=== PATIENT | male | born 1950 | race Caucasian/White ===

== ENCOUNTER 2018-06-28 20:58 | Emergency (ER) | payer MEDICARE, BC ==
[~2018-06-28] VITALS: Ht 182.9 cm; Wt 81.8 kg
[~2018-06-28 20:58] MED LIST: DONE10TA7 PO; MEMA28CA PO
[2018-06-28 21:41] LABS: BASOPHILS % (AUTO) 0.4 % (0-1); EOSINOPHILS # (AUTO) 0.1 X10'3 (0-0.9); EOSINOPHILS % (AUTO) 1.8 % (0-6); HEMATOCRIT 42.9 % (42.0-52.0); HEMOGLOBIN 14.6 g/dl (14.0-17.9); LYMPHOCYTES # (AUTO) 1.3 X10'3 (1.1-4.8); LYMPHOCYTES % (AUTO) 16.8 % (21-51); MEAN CORPUSCULAR HGB CONC 33.9 % (33.0-36.5); MEAN CORPUSCULAR VOLUME 88.3 FL (78-98); MEAN PLATELET VOLUME 7.8 FL (7.4-10.4); MONOCYTES # (AUTO) 0.5 X10'3 (0-0.9); MONOCYTES % (AUTO) 6.1 % (2-12); NEUTROPHILS # (AUTO) 5.9 X10'3 (1.8-7.7); NEUTROPHILS % (AUTO) 74.9 % (42-75); PLATELET COUNT 259 X10'3 (140-440); RED BLOOD COUNT 4.86 X10'6 (4.70-6.10); RED CELL DISTRIBUTION WIDTH 13.2 % (11.5-14.5); WHITE BLOOD COUNT 7.8 X10'3 (4.5-11.0)
[2018-06-28 21:48] LABS: ALANINE AMINOTRANSFERASE 26 U/L (12-78); ALBUMIN 3.2 G/DL (3.4-5.0); ALBUMIN/GLOBULIN RATIO 1.1 (1.1-1.5); ALKALINE PHOSPHATASE 94 IU/L (46-116); ANION GAP 7 (8-16); ASPARTATE AMINO TRANSFERASE 29 U/L (10-37); BILIRUBIN,TOTAL 0.4 MG/DL (0.1-1.0); BLOOD UREA NITROGEN 24 MG/DL (7-18); CALCIUM 8.6 MG/DL (8.5-10.1); CHLORIDE 107 MMOL/L (99-107); CREATININE 0.96 MG/DL (0.60-1.10); GLUCOSE 130 MG/DL (70-104); POTASSIUM 3.2 MMOL/L (3.5-5.1); SODIUM 142 MMOL/L (135-145); TOTAL CARBON DIOXIDE 27.6 MMOL/L (24-32); eGFR 78 ML/MIN
[2018-06-28 21:58] LABS: ETHANOL < 0.010 GM/DL (0.0-0.010)
[2018-06-28] MEDS ORDERED: LORazepam 2 mg/ml vial IM ONE (22:40)
[2018-06-28] MEDS ORDERED: haloperidol lactate 5mg/ml inj IM ONE (22:40)
[2018-06-28] MEDS ORDERED: QUET25TA PO (22:47)
[2018-06-28] MEDS ORDERED: LORA1TAB PO (22:47)
[2018-06-28] MEDS ORDERED: OLAN10TA19 PO (22:47)
[2018-06-28] MEDS ORDERED: CHLO25CA10 PO (22:47)
[2018-06-28] MEDS ORDERED: FLO0.4C PO (22:47)
[2018-06-28] MEDS ORDERED: ZIPR40CA2 PO (22:47)
[2018-06-28] MEDS ORDERED: ACET325T55 PO (22:47)
[2018-06-28] MEDS ORDERED: QUET-1 PO (22:47)
[2018-06-28] MEDS ORDERED: MIRT15TA PO (22:47)
[2018-06-28] MEDS ORDERED: CYCL-1 PO (22:47)
[2018-06-28] MEDS ORDERED: DIPH25CA46 PO (22:47)
[2018-06-28 23:28] LABS: URINE AMPHETAMINE SCREEN NEGATIVE (Neg); URINE BARBITUATE SCREEN NEGATIVE (Neg); URINE BENZODIAZEPINES SCREEN POSITIVE (Neg); URINE CANNABINOID SCREEN NEGATIVE (Neg); URINE COCAINE SCREEN NEGATIVE (Neg); URINE METHADONE SCREEN NEGATIVE (Neg); URINE OPIATE SCREEN NEGATIVE (Neg); URINE PHENCYCLIDINE SCREEN NEGATIVE (Neg)
[2018-06-29] MEDS ORDERED: acetaminophen 325mg tablet PO PRN (03:30)
[2018-06-29] MEDS ORDERED: cyclobenzaprine 10mg tablet PO PRN (03:30)
[2018-06-29] MEDS ORDERED: ziprasidone IM 20mg inj **IM only IM ONE (05:35)
[2018-06-29] MEDS ORDERED: RIFA550T PO (07:55)
[2018-06-29] MEDS ORDERED: MELA3TAB PO (07:55)
[2018-06-29] MEDS ORDERED: LACT10SO PO (07:55)
[2018-06-29] MEDS ORDERED: MAGN70TA PO (07:55)
[2018-06-29] MEDS ORDERED: PROP10TA10 PO (07:55)
[2018-06-29] MEDS ORDERED: ZIN220C PO (07:55)
[2018-06-29] MEDS ORDERED: FURO-149 PO (07:55)
[2018-06-29] MEDS ORDERED: PANT40TA4 PO (07:55)
[2018-06-29] MEDS ORDERED: DOCU1ENE3 PR (07:59)
[2018-06-29] MEDS ORDERED: HYDR-4383 PO (07:59)
[2018-06-29] MEDS ORDERED: HYDR-4353 PO (07:59)
[2018-06-29] MEDS: TYPE IN GENERIC & BRAND NAME OF PATIENT MED STRENGTH & FORM PO SCH (08:00)
[2018-06-29] MEDS: tamsulosin 0.4mg capsule PO SCH (08:11)
[2018-06-29] MEDS: LORazepam 1 MG tablet PO SCH ×2 (08:11→20:16)
[2018-06-29] MEDS: chlordiazePOXIDE 25mg capsule PO SCH ×3 (08:11→20:16)
[2018-06-29] MEDS: olanzapine 10mg tablet PO SCH (08:12)
[2018-06-29] MEDS: ziprasidone 20mg capsule PO SCH (08:12)
[2018-06-29] MEDS ORDERED: MIRT15TA PO (08:52)
[2018-06-29] MEDS ORDERED: OLAN10TA19 PO (08:52)
[2018-06-29] MEDS ORDERED: ZIPR40CA2 PO (08:52)
[2018-06-29] MEDS ORDERED: CHLO25CA10 PO (08:52)
[2018-06-29] MEDS ORDERED: CYCL-1 PO (08:52)
[2018-06-29] MEDS ORDERED: QUET-1 PO (08:52)
[2018-06-29] MEDS ORDERED: DIPH25CA46 PO (08:52)
[2018-06-29] MEDS ORDERED: MEMA28CA PO (08:52)
[2018-06-29] MEDS ORDERED: ACET325T55 PO (08:52)
[2018-06-29] MEDS ORDERED: DONE10TA7 PO (08:52)
[2018-06-29] MEDS ORDERED: LORazepam 1 MG tablet PO ONE ×2 (10:05→11:05)
[2018-06-29] MEDS: QUEtiapine 25mg tablet PO SCH (10:14)
[2018-06-29] MEDS ORDERED: potassium chloride 10mEq CAPSULE.SA PO ONE (20:20)
[2018-06-29] MEDS ORDERED: potassium Cl 20 mEq SR tablet PO ONE (20:30)
[2018-06-29] MEDS ORDERED: mirtazapine 15mg tablet PO SCH (21:00)
[2018-06-29] MEDS ORDERED: quetiapine 100mg tablet PO SCH (21:00)
[2018-06-29] MEDS ORDERED: donepezil 5mg tablet PO SCH (21:00)
[2018-06-29] MEDS ORDERED: diphenhydrAMINE 25mg capsule PO SCH (21:00)
[2018-06-29] MEDS ORDERED: OLANZapine 2.5MG tablet PO ONE (22:25)
[2018-06-30] MEDS ORDERED: haloperidol lactate 5mg/ml inj IM ONE (00:35)
[2018-06-30] MEDS ORDERED: hyDROXYzine 50 mg/ml injection ***IM only IM ONE (00:35)
[2018-06-30] MEDS: TYPE IN GENERIC & BRAND NAME OF PATIENT MED STRENGTH & FORM PO SCH (08:00)
[2018-06-30] MEDS: QUEtiapine 25mg tablet PO SCH (08:48)
[2018-06-30] MEDS: LORazepam 1 MG tablet PO SCH (08:48)
[2018-06-30] MEDS: olanzapine 10mg tablet PO SCH (08:50)
[2018-06-30] MEDS: ziprasidone 20mg capsule PO SCH (08:58)
[2018-06-30] MEDS: chlordiazePOXIDE 25mg capsule PO SCH (09:01)
[2018-06-30] MEDS: tamsulosin 0.4mg capsule PO SCH (09:01)
[2018-06-30] MEDS ORDERED: LORazepam 1 MG tablet PO ONE (11:10)
[2018-06-30 11:18] VITALS: BP 146/89
== END 2018-06-30 12:50 ==
LOC: ER 20:58
DX: F03.91 Unspecified dementia, unspecified severity, with behavioral disturbance (principal); Z98.890 Other specified postprocedural states; Z79.899 Other long term (current) drug therapy
CPT/HCPCS: 36415; 80053; 80305; 80320; 84443; 85025; 96372; 99285; J1630; J2060; J3410; J3486; Q0163; J3490

== ENCOUNTER 2019-03-03 20:06 | Inpatient (IN) | payer MEDICARE, BC ==
[~2019-03-03] VITALS: Ht 185.4 cm; Wt 79.5 kg
[~2019-03-03 20:06] MED LIST changes: +ACET-2119 PO; +CALC500T11 PO; +CARB15DR91 TOP; +CHLO25TA22 PO; -DONE10TA7 PO; +FINA5TAB11 PO; +FLO0.4C PO; +MAGN400O6 PO; -MEMA28CA PO; +MIRT30TA8 PO; +NEOM28.37 TOP; +POLY17PO36 PO; +TRAZ-251 PO; +ZINC57OI3 TOP
[2019-03-03 20:34] LABS: BASOPHILS # (AUTO) 0.1 X10'3 (0-0.2); BASOPHILS % (AUTO) 0.6 % (0-1); EOSINOPHILS % (AUTO) 0.4 % (0-6); HEMATOCRIT 28.2 % (42.0-52.0); HEMOGLOBIN 9.7 g/dl (14.0-17.9); LYMPHOCYTES % (AUTO) 9.4 % (21-51); MEAN CORPUSCULAR HEMOGLOBIN 29.3 PG (27.0-31.0); MEAN CORPUSCULAR HGB CONC 34.3 g/dL (33.0-36.5); MEAN CORPUSCULAR VOLUME 85.2 FL (78-98); MEAN PLATELET VOLUME 6.8 FL (7.4-10.4); MONOCYTES # (AUTO) 0.9 X10'3 (0-0.9); MONOCYTES % (AUTO) 8.9 % (2-12); NEUTROPHILS # (AUTO) 8.6 X10'3 (1.8-7.7); NEUTROPHILS % (AUTO) 80.7 % (42-75); PLATELET COUNT 369 X10'3 (140-440); RED BLOOD COUNT 3.31 X10'6 (4.70-6.10); RED CELL DISTRIBUTION WIDTH 13.8 % (11.5-14.5); WHITE BLOOD COUNT 10.6 X10'3 (4.5-11.0)
[2019-03-03 20:51] LABS: ALANINE AMINOTRANSFERASE 20 U/L (12-78); ALBUMIN 2.6 G/DL (3.4-5.0); ALBUMIN/GLOBULIN RATIO 0.8 (1.1-1.5); ALKALINE PHOSPHATASE 98 IU/L (46-116); ANION GAP 6 (8-16); ASPARTATE AMINO TRANSFERASE 13 U/L (10-37); BILIRUBIN,TOTAL 0.2 MG/DL (0.1-1.0); BLOOD UREA NITROGEN 26 MG/DL (7-18); BUN/CREATININE RATIO 28.9 (5.4-32.0); CALCIUM 8.4 MG/DL (8.5-10.1); CHLORIDE 109 MMOL/L (99-107); ETHANOL < 0.010 GM/DL (0.0-0.010); GLUCOSE 146 MG/DL (70-104); SODIUM 145 MMOL/L (135-145); TOTAL CARBON DIOXIDE 29.7 MMOL/L (24-32); TOTAL PROTEIN 5.8 G/DL (6.4-8.2); eGFR 84 ML/MIN
[2019-03-03 20:56] LABS: POTASSIUM 2.4 MMOL/L (3.5-5.1)
[2019-03-03] MEDS ORDERED: TRAZ-251 PO (20:59)
[2019-03-03] MEDS ORDERED: potassium 10mEq/100ml NS w/LIDOcaine (10mg/bag) IV SCH (21:00)
[2019-03-03] MEDS ORDERED: normal saline 1000ML IV soln IV ONE (21:05)
[2019-03-03 21:07] LABS: PARTIAL THROMBOPLASTIN TIME 25 SECONDS (22-32)
[2019-03-03] MEDS: potassium Cl 10 mEq/100mL bag IV SCH ×2 (21:16→22:21)
[2019-03-03 21:28] LABS: CLARITY,URINE CLOUDY (Clear); COLOR,URINE YELLOW (Yellow); GLUCOSE, URINE NEGATIVE (Neg); KETONES,URINE TRACE mg/dl (Neg); LEUKOCYTE ESTERASE ,URINE SMALL (Neg); OCCULT BLOOD,URINE SMALL (Neg); PH,URINE 5.5 (4.8-8.0); PROTEIN,URINE 30 mg/dl (Neg); UROBILINOGEN,URINE 0.2 E.U/dL (0.2-1.0)
[2019-03-03 21:38] LABS: UA COLLECTION TYPE FOLEY CATH
[2019-03-03 21:39] LABS: NITRITES, URINE NEGATIVE (Neg); URINE AMPHETAMINE SCREEN NEGATIVE (Neg); URINE BARBITUATE SCREEN NEGATIVE (Neg); URINE BENZODIAZEPINES SCREEN NEGATIVE (Neg); URINE CANNABINOID SCREEN NEGATIVE (Neg); URINE COCAINE SCREEN NEGATIVE (Neg); URINE METHADONE SCREEN NEGATIVE (Neg); URINE OPIATE SCREEN NEGATIVE (Neg); URINE PHENCYCLIDINE SCREEN NEGATIVE (Neg)
[2019-03-03 21:40] LABS: BACTERIA,URINE FEW /HPF (Neg); MUCUS STRANDS MODERATE /LPF (Neg); SQUAMOUS EPITHELIAL CELL,UR FEW /LPF (FEW); WBC CLUMPS,URINE FEW /HPF (NEGATIVE); WBC,URINE 30-50 /HPF (0-4)
[2019-03-03] MEDS ORDERED: CefTRIAXone 2gm/D5W 50ml 50 ML IV ONE (21:45)
--- NOTE | 2019-03-03 21:55 | NUR ---
CHECKED WITH MICROMEDEX, POTASSIUM AND ROCEPHIN ARE IV COMPATIBLE.
[2019-03-03] MEDS ORDERED: ZINC OXIDE TOP PRN (22:25)
[2019-03-03] MEDS ORDERED: CALCIUM CARBONATE PO PRN (22:25)
[2019-03-03] MEDS ORDERED: dextrose 5%-1/2 normal saline 1,000 ML IV SCH (22:26)
[2019-03-03] MEDS ORDERED: acetaminophen 325mg tablet PO PRN ×2 (22:30)
[2019-03-03] MEDS ORDERED: ondansetron/PF 4mg/2ml inj IV PRN (22:30)
[2019-03-03] MEDS ORDERED: mag hydrox/Alum hydrox/simeth 30ml oral suspension PO PRN (22:30)
[2019-03-03] MEDS ORDERED: magnesium hydroxide 30ml (MOM) UD suspension PO PRN (22:30)
[2019-03-03] MEDS ORDERED: morphine 2 MG/ML inj. syringe IV PRN ×2 (22:30)
[2019-03-03] MEDS ORDERED: mirtazapine 15mg tablet PO SCH (22:53)
[2019-03-03] MEDS ORDERED: calcium carbonate 500mg chew tablet PO PRN (22:55)
--- NOTE | 2019-03-04 00:15 | NUR ---
Received report from Bonnie PEREZ in ED. Was given time and opportunity to ask questions and have them answered. Will assume patient care once transferred to unit.
[2019-03-04 00:30] VITALS: BP 106/72
[2019-03-04] MEDS ORDERED: magnesium 4gm in 100ml NS 100 ML IV PRN (01:05)
[2019-03-04] MEDS ORDERED: magnesium Cl slow-release 64mg tablet PO PRN (01:05)
[2019-03-04] MEDS ORDERED: potassium Cl 20 mEq SR tablet PO PRN (01:05)
[2019-03-04 01:50] LABS: BASOPHILS % (AUTO) 0.4 % (0-1); EOSINOPHILS % (AUTO) 0.6 % (0-6); HEMATOCRIT 27.2 % (42.0-52.0); HEMOGLOBIN 9.1 g/dl (14.0-17.9); LYMPHOCYTES # (AUTO) 1.4 X10'3 (1.1-4.8); LYMPHOCYTES % (AUTO) 16.3 % (21-51); MEAN CORPUSCULAR HEMOGLOBIN 28.9 PG (27.0-31.0); MEAN CORPUSCULAR HGB CONC 33.6 g/dL (33.0-36.5); MEAN CORPUSCULAR VOLUME 85.9 FL (78-98); MEAN PLATELET VOLUME 6.8 FL (7.4-10.4); MONOCYTES # (AUTO) 0.8 X10'3 (0-0.9); MONOCYTES % (AUTO) 8.9 % (2-12); NEUTROPHILS # (AUTO) 6.4 X10'3 (1.8-7.7); NEUTROPHILS % (AUTO) 73.8 % (42-75); PLATELET COUNT 345 X10'3 (140-440); RED BLOOD COUNT 3.17 X10'6 (4.70-6.10); RED CELL DISTRIBUTION WIDTH 14.1 % (11.5-14.5); WHITE BLOOD COUNT 8.6 X10'3 (4.5-11.0)
[2019-03-04 02:00] LABS: ALBUMIN 2.4 G/DL (3.4-5.0); ANION GAP 5 (8-16); BLOOD UREA NITROGEN 19 MG/DL (7-18); BUN/CREATININE RATIO 27.5 (5.4-32.0); CALCIUM 7.9 MG/DL (8.5-10.1); CHLORIDE 112 MMOL/L (99-107); CREATININE 0.69 MG/DL (0.60-1.10); GLUCOSE 126 MG/DL (70-104); MAGNESIUM 1.9 MG/DL (1.5-2.4); SODIUM 144 MMOL/L (135-145); TOTAL CARBON DIOXIDE 26.7 MMOL/L (24-32); eGFR > 90 ML/MIN
[2019-03-04 02:06] LABS: POTASSIUM 2.6 MMOL/L (3.5-5.1)
[2019-03-04] MEDS: potassium CL 10mEq/100ml bag 100 ML IV PRN ×6 (02:11→12:35)
[2019-03-04 06:39] LABS: ALBUMIN 2.5 G/DL (3.4-5.0); ANION GAP 7 (8-16); BLOOD UREA NITROGEN 15 MG/DL (7-18); BUN/CREATININE RATIO 24.6 (5.4-32.0); CALCIUM 8.1 MG/DL (8.5-10.1); CHLORIDE 111 MMOL/L (99-107); CREATININE 0.61 MG/DL (0.60-1.10); GLUCOSE 90 MG/DL (70-104); SODIUM 146 MMOL/L (135-145); TOTAL CARBON DIOXIDE 28.2 MMOL/L (24-32); eGFR > 90 ML/MIN
--- NOTE | 2019-03-04 06:40 | NUR ---
Problems reprioritized. Patient report given, questions answered & plan of care reviewed with Olya PEREZ.
[2019-03-04 06:41] LABS: POTASSIUM 2.7 MMOL/L (3.5-5.1)
[2019-03-04 07:00] VITALS: BP 127/76
[2019-03-04] MEDS: CefTRIAXone/D5W-Rocephin 1gm 50 ML IV SCH (07:55)
[2019-03-04] MEDS: zinc oxide ointment 30gm tube TP SCH ×2 (08:00→20:00)
[2019-03-04] MEDS: tamsulosin 0.4mg capsule PO SCH (08:00)
[2019-03-04] MEDS: finasteride 5mg tablet PO SCH (08:00)
[2019-03-04] MEDS: normal saline 1000ml 1,000 ML IV SCH ×2 (08:08→17:55)
[2019-03-04] MEDS: heparin, porcine 5000 units/ml vial SQ SCH ×2 (08:08→20:57)
[2019-03-04] MEDS ORDERED: pneumococcal 23-VAL P-sac vacc 25 mcg/0.5ml vial IMVAC ONE (10:50)
[2019-03-04 12:00] VITALS: BP 102/66
[2019-03-04] MEDS ORDERED: LORazepam 2 mg/ml vial IV PRN (17:20)
[2019-03-04] MEDS ORDERED: LORazepam 0.5 MG tablet PO PRN (17:20)
[2019-03-04] MEDS ORDERED: chlorproMAZINE 25mg tablet PO SCH (18:00)
--- NOTE | 2019-03-04 18:05 | NUR ---
Patient in room [facility]. I have received report from Olya PEREZ and had the opportunity to ask questions and assume patient care.
[2019-03-04 20:00] VITALS: BP 118/73
[2019-03-04] MEDS: lactobacillus rhamnosus 10,000 MMU CELLS/CAPSULE PO SCH (20:56)
[2019-03-04] MEDS ORDERED: traZODone 50mg tablet PO SCH ×2 (21:00)
[2019-03-04] MEDS ORDERED: non-formulary drug (Mirtazapine 1 TAB) PO SCH (21:00)
[2019-03-04] MEDS: potassium Cl 20 mEq SR tablet PO PRN (22:24)
[2019-03-05] VITALS: BP 101/63
[2019-03-05] MEDS: potassium Cl 20 mEq SR tablet PO PRN (03:11)
[2019-03-05] MEDS: normal saline 1000ml 1,000 ML IV SCH ×2 (03:55→08:09)
[2019-03-05 05:21] LABS: BASOPHILS % (AUTO) 0.5 % (0-1); EOSINOPHILS # (AUTO) 0.1 X10'3 (0-0.9); EOSINOPHILS % (AUTO) 0.9 % (0-6); HEMATOCRIT 31.7 % (42.0-52.0); HEMOGLOBIN 10.7 g/dl (14.0-17.9); LYMPHOCYTES # (AUTO) 1.3 X10'3 (1.1-4.8); LYMPHOCYTES % (AUTO) 16.6 % (21-51); MEAN CORPUSCULAR HEMOGLOBIN 28.9 PG (27.0-31.0); MEAN CORPUSCULAR HGB CONC 33.7 g/dL (33.0-36.5); MEAN CORPUSCULAR VOLUME 85.9 FL (78-98); MEAN PLATELET VOLUME 6.7 FL (7.4-10.4); MONOCYTES # (AUTO) 0.7 X10'3 (0-0.9); MONOCYTES % (AUTO) 9.6 % (2-12); NEUTROPHILS # (AUTO) 5.6 X10'3 (1.8-7.7); NEUTROPHILS % (AUTO) 72.4 % (42-75); PLATELET COUNT 369 X10'3 (140-440); RED BLOOD COUNT 3.68 X10'6 (4.70-6.10); RED CELL DISTRIBUTION WIDTH 14.1 % (11.5-14.5); WHITE BLOOD COUNT 7.7 X10'3 (4.5-11.0)
[2019-03-05 05:29] LABS: ALBUMIN 2.5 G/DL (3.4-5.0); ANION GAP 6 (8-16); BLOOD UREA NITROGEN 9 MG/DL (7-18); BUN/CREATININE RATIO 14.5 (5.4-32.0); CALCIUM 8.3 MG/DL (8.5-10.1); CHLORIDE 111 MMOL/L (99-107); CREATININE 0.62 MG/DL (0.60-1.10); GLUCOSE 87 MG/DL (70-104); POTASSIUM 3.7 MMOL/L (3.5-5.1); SODIUM 146 MMOL/L (135-145); TOTAL CARBON DIOXIDE 28.7 MMOL/L (24-32); eGFR > 90 ML/MIN
--- NOTE | 2019-03-05 06:39 | NUR ---
Problems reprioritized. Patient report given, questions answered & plan of care reviewed with Sakina PEREZ.
[2019-03-05 07:00] VITALS: BP 119/81
--- NOTE | 2019-03-05 07:07 | NUR ---
Patient in room [facility]. I have received report from Jeremias PEREZ and had the opportunity to ask questions and assume patient care.
[2019-03-05] MEDS ORDERED: pneumococcal 23-VAL P-sac vacc 25 mcg/0.5ml vial IMVAC ONE (08:00)
[2019-03-05] MEDS: zinc oxide ointment 30gm tube TP SCH (08:00)
[2019-03-05] MEDS: lactobacillus rhamnosus 10,000 MMU CELLS/CAPSULE PO SCH (08:09)
[2019-03-05] MEDS: finasteride 5mg tablet PO SCH (08:09)
[2019-03-05] MEDS: tamsulosin 0.4mg capsule PO SCH (08:09)
[2019-03-05] MEDS: CefTRIAXone/D5W-Rocephin 1gm 50 ML IV SCH (08:09)
[2019-03-05] MEDS: heparin, porcine 5000 units/ml vial SQ SCH (08:10)
[2019-03-05] MEDS ORDERED: POTA20TA10 PO (09:12)
--- NOTE | 2019-03-05 09:13 | NUR ---
Spoke to Leslie Strong regarding if patient has had Pna vaccine and they show no record he is a new resident. Will ask patients when she comes .
[2019-03-05] MEDS ORDERED: CIPR-230 PO (10:52)
[2019-03-05 11:00] VITALS: BP 104/68
[2019-03-05] MEDS ORDERED: chlorproMAZINE 25mg tablet PO SCH (11:36)
--- NOTE | 2019-03-05 11:49 | NUR ---
Called Rosy at [facility] at [phone] and gave report on patient that I sent a leg santizo bag with patient. Picture sent of wound to sacrum and time meds are due next sent with patient. Demolition Hammer Operator Carol notified that patient was going back to [facility].
--- NOTE | 2019-03-05 11:50 | NUR ---
Anisha arrived at 1115 not due until 1145. Patient was transferred to wheelchair and santizo bag emptied. Called Report and patient was discharge with no belongings. Addendum: 03/05/19 at 1152 by Sakina Chavez RN Patient pulled IV out cannula intact 2x2 gauze dressing applied
== END 2019-03-05 11:48 | DRG 71 ==
LOC: ER 20:06 → SUR 3N 03-04 00:14
PROVIDERS: ADMIT Internal Medicine; ATTEND Internal Medicine
PROC: 3E0234Z Introduction of Serum, Toxoid and Vaccine into Muscle, Percutaneous Approach (ICD-10-PCS; principal; 2019-03-04)
DX: G93.49 Other encephalopathy (principal); N39.0 Urinary tract infection, site not specified; E44.0 Moderate protein-calorie malnutrition; F03.90 Unspecified dementia, unspecified severity, without behavioral disturbance, psychotic disturbance, mood disturbance, and anxiety; E87.6 Hypokalemia; D64.9 Anemia, unspecified; L89.152 Pressure ulcer of sacral region, stage 2; Z66 Do not resuscitate; N40.0 Benign prostatic hyperplasia without lower urinary tract symptoms; Z79.899 Other long term (current) drug therapy; Z23 Encounter for immunization; Z79.01 Long term (current) use of anticoagulants
CPT/HCPCS: 36415; 70450; 71045; 80048; 80053; 80305; 80320; 81001; 82140; 83605; 83735; 84132; 84145; 85025; 85610; 85730; 87040; 87077; 87081; 87088; 87186; 90732; 93005; 96365; 96366; 96367; 96368; 99285; G0378; J0696; J1644; J2060; J3480; J7030; Q0161

== ENCOUNTER 2019-05-20 15:55 | Emergency (ER) | payer MEDICARE, BC ==
[~2019-05-20] VITALS: Ht 190.5 cm; Wt 84.8 kg
[~2019-05-20 15:55] MED LIST changes: +POTA20TA10 PO
[2019-05-20 16:02] VITALS: BP 140/86
[2019-05-20 16:46] LABS: BASOPHILS % (AUTO) 0.3 % (0-1); EOSINOPHILS % (AUTO) 0.4 % (0-6); HEMATOCRIT 38.6 % (42.0-52.0); HEMOGLOBIN 12.8 g/dl (14.0-17.9); LYMPHOCYTES % (AUTO) 10.4 % (21-51); MEAN CORPUSCULAR HEMOGLOBIN 28.2 PG (27.0-31.0); MEAN CORPUSCULAR HGB CONC 33.1 g/dL (33.0-36.5); MEAN CORPUSCULAR VOLUME 85.3 FL (78-98); MEAN PLATELET VOLUME 7.4 FL (7.4-10.4); MONOCYTES # (AUTO) 0.6 X10'3 (0-0.9); MONOCYTES % (AUTO) 6.2 % (2-12); NEUTROPHILS # (AUTO) 8.3 X10'3 (1.8-7.7); NEUTROPHILS % (AUTO) 82.7 % (42-75); PLATELET COUNT 249 X10'3 (140-440); RED BLOOD COUNT 4.53 X10'6 (4.70-6.10); RED CELL DISTRIBUTION WIDTH 14.8 % (11.5-14.5)
[2019-05-20 16:52] LABS: PARTIAL THROMBOPLASTIN TIME 30 SECONDS (22-32)
[2019-05-20 16:58] LABS: ALANINE AMINOTRANSFERASE 19 U/L (12-78); ALBUMIN 3.4 G/DL (3.4-5.0); ALKALINE PHOSPHATASE 104 IU/L (46-116); ANION GAP 4 (8-16); ASPARTATE AMINO TRANSFERASE 8 U/L (10-37); BILIRUBIN,TOTAL 0.2 MG/DL (0.1-1.0); BLOOD UREA NITROGEN 26 MG/DL (7-18); BUN/CREATININE RATIO 32.1 (5.4-32.0); CALCIUM 9.3 MG/DL (8.5-10.1); CHLORIDE 106 MMOL/L (99-107); CREATININE 0.81 MG/DL (0.60-1.10); GLUCOSE 96 MG/DL (70-104); SODIUM 141 MMOL/L (135-145); TOTAL CARBON DIOXIDE 31.4 MMOL/L (24-32); TOTAL PROTEIN 6.8 G/DL (6.4-8.2); eGFR > 90 ML/MIN
[2019-05-20 17:00] LABS: LACTIC SEPSIS 0.9 MMOL/L (0.4-2.0)
[2019-05-20 17:03] LABS: TROPONIN I < 0.04 NG/ML (0.0-0.05)
[2019-05-20 17:04] LABS: ETHANOL < 0.010 GM/DL (0.0-0.010)
[2019-05-20 17:10] LABS: CLARITY,URINE CLOUDY (Clear); COLOR,URINE YELLOW (Yellow); GLUCOSE, URINE NEGATIVE (Neg); KETONES,URINE NEGATIVE (Neg); LEUKOCYTE ESTERASE ,URINE NEGATIVE (Neg); NITRITES, URINE NEGATIVE (Neg); OCCULT BLOOD,URINE LARGE (Neg); PROTEIN,URINE 100 mg/dl (Neg); UROBILINOGEN,URINE 0.2 E.U/dL (0.2-1.0)
[2019-05-20 17:12] LABS: UA COLLECTION TYPE FOLEY CATH
[2019-05-20 17:15] LABS: MUCUS STRANDS FEW /LPF (Neg); SQUAMOUS EPITHELIAL CELL,UR MODERATE /LPF (FEW)
[2019-05-20 17:16] LABS: BACTERIA,URINE FEW /HPF (Neg); RBC,URINE TNTC /HPF (0-2); WBC,URINE 20-30 /HPF (0-4)
--- NOTE | 2019-05-20 17:16 | NUR ---
TESTED GATE AMBLULATED AROUND ER WITH STEADY GATE
[2019-05-20 17:17] LABS: CAL OXALATE CRYSTALS 1+ /HPF (NEGATIVE)
[2019-05-20 17:23] LABS: URINE AMPHETAMINE SCREEN NEGATIVE (Neg); URINE BARBITUATE SCREEN NEGATIVE (Neg); URINE BENZODIAZEPINES SCREEN NEGATIVE (Neg); URINE CANNABINOID SCREEN NEGATIVE (Neg); URINE COCAINE SCREEN NEGATIVE (Neg); URINE METHADONE SCREEN NEGATIVE (Neg); URINE OPIATE SCREEN POSITIVE (Neg); URINE PHENCYCLIDINE SCREEN NEGATIVE (Neg)
--- NOTE | 2019-05-20 17:24 | NUR ---
called [facility] [phone] [facility] staff states macrobid started 10/15 100mg bid, and levaquin started 10/16 250 mg daily, dr bradshaw informed.
[2019-05-20] MEDS ORDERED: CEPH500C5 PO (17:30)
--- NOTE | 2019-05-20 17:44 | NUR ---
[facility] WAS CALLED FOR PT. WILL RETURN TO [facility].
[2019-05-20 17:53] LABS: AMMONIA < 10 UMOL/L (11-32)
--- NOTE | 2019-05-20 18:01 | NUR ---
ATTEMPTED TO CALL REPORT TO [facility] NO AWNSER WILL TRY AGAIN
--- NOTE | 2019-05-20 18:06 | NUR ---
2ND ATTEMPT TO [facility] NO AWNSER
== END 2019-05-20 18:20 | disposition home or self-care (01) ==
LOC: ER 15:56
DX: T83.511A Infection and inflammatory reaction due to indwelling urethral catheter, initial encounter (principal); G30.9 Alzheimer's disease, unspecified; F02.80 Dementia in other diseases classified elsewhere, unspecified severity, without behavioral disturbance, psychotic disturbance, mood disturbance, and anxiety; Z98.890 Other specified postprocedural states; Z79.2 Long term (current) use of antibiotics; Z79.899 Other long term (current) drug therapy; Y69 Unspecified misadventure during surgical and medical care; Y92.89 Other specified places as the place of occurrence of the external cause
CPT/HCPCS: 36415; 70450; 71045; 80053; 80305; 80320; 81001; 82140; 83605; 84484; 85025; 85610; 85730; 87040; 87077; 87088; 87186; 93005; 99284

== ENCOUNTER 2019-05-21 15:06 | Emergency (ER) | payer MEDICARE, BC ==
[~2019-05-21] VITALS: Ht 172.7 cm; Wt 85.8 kg
[~2019-05-21 15:06] MED LIST changes: +CEPH500C5 PO
[2019-05-21 15:11] VITALS: BP 130/79
[2019-05-21 15:31] LABS: BASOPHILS # (AUTO) 0.1 X10'3 (0-0.2); BASOPHILS % (AUTO) 0.5 % (0-1); EOSINOPHILS % (AUTO) 0.4 % (0-6); HEMATOCRIT 38.2 % (42.0-52.0); HEMOGLOBIN 12.9 g/dl (14.0-17.9); LYMPHOCYTES # (AUTO) 1.1 X10'3 (1.1-4.8); MEAN CORPUSCULAR HEMOGLOBIN 28.4 PG (27.0-31.0); MEAN CORPUSCULAR HGB CONC 33.7 g/dL (33.0-36.5); MEAN CORPUSCULAR VOLUME 84.3 FL (78-98); MEAN PLATELET VOLUME 7.3 FL (7.4-10.4); MONOCYTES # (AUTO) 0.7 X10'3 (0-0.9); MONOCYTES % (AUTO) 6.5 % (2-12); NEUTROPHILS % (AUTO) 82.6 % (42-75); PLATELET COUNT 251 X10'3 (140-440); RED BLOOD COUNT 4.54 X10'6 (4.70-6.10); RED CELL DISTRIBUTION WIDTH 15.2 % (11.5-14.5); WHITE BLOOD COUNT 10.9 X10'3 (4.5-11.0)
[2019-05-21 15:46] LABS: ALANINE AMINOTRANSFERASE 19 U/L (12-78); ALBUMIN 3.4 G/DL (3.4-5.0); ALBUMIN/GLOBULIN RATIO 1.1 (1.1-1.5); ALKALINE PHOSPHATASE 101 IU/L (46-116); ANION GAP 9 (8-16); ASPARTATE AMINO TRANSFERASE 12 U/L (10-37); BILIRUBIN,TOTAL 0.3 MG/DL (0.1-1.0); BLOOD UREA NITROGEN 24 MG/DL (7-18); BUN/CREATININE RATIO 26.1 (5.4-32.0); CALCIUM 8.4 MG/DL (8.5-10.1); CHLORIDE 108 MMOL/L (99-107); CREATININE 0.92 MG/DL (0.60-1.10); GLUCOSE 95 MG/DL (70-104); POTASSIUM 3.3 MMOL/L (3.5-5.1); SODIUM 145 MMOL/L (135-145); TOTAL CARBON DIOXIDE 27.8 MMOL/L (24-32); TOTAL PROTEIN 6.6 G/DL (6.4-8.2); eGFR 82 ML/MIN
== END 2019-05-21 17:05 | disposition home or self-care (01) ==
LOC: ER 15:07
DX: S00.31XA Abrasion of nose, initial encounter (principal); F03.90 Unspecified dementia, unspecified severity, without behavioral disturbance, psychotic disturbance, mood disturbance, and anxiety; Z98.890 Other specified postprocedural states; Z79.2 Long term (current) use of antibiotics; Z79.899 Other long term (current) drug therapy; W18.39XA Other fall on same level, initial encounter; Y93.89 Activity, other specified; Y92.89 Other specified places as the place of occurrence of the external cause; Y99.8 Other external cause status
CPT/HCPCS: 36415; 70450; 80053; 82948; 85025; 99284

== ENCOUNTER 2019-05-28 04:10 | Emergency (ER) | payer MEDICARE, BC ==
[~2019-05-28] VITALS: Ht 175.3 cm; Wt 75.0 kg
[2019-05-28] MEDS ORDERED: LIDOcaine 2% 10ml TOPICAL JELLY (Urojet) MM ONE ×2 (04:20→04:25)
[2019-05-28 05:09] VITALS: BP 125/86
== END 2019-05-28 05:10 ==
LOC: ER 04:11
DX: T83.098A Other mechanical complication of other urinary catheter, initial encounter (principal); F03.90 Unspecified dementia, unspecified severity, without behavioral disturbance, psychotic disturbance, mood disturbance, and anxiety; Z98.890 Other specified postprocedural states; Z79.2 Long term (current) use of antibiotics; Z79.899 Other long term (current) drug therapy; Y84.6 Urinary catheterization as the cause of abnormal reaction of the patient, or of later complication, without mention of misadventure at the time of the procedure; Y92.89 Other specified places as the place of occurrence of the external cause
CPT/HCPCS: 51702; 99284

== ENCOUNTER 2019-07-01 06:44 | Emergency (ER) | payer MEDICARE, BC ==
[~2019-07-01] VITALS: Ht 185.4 cm; Wt 88.6 kg
[~2019-07-01 06:44] MED LIST changes: -CEPH500C5 PO
[2019-07-01 06:48] VITALS: BP 122/87
[2019-07-01] MEDS ORDERED: LIDOcaine 2% 10ml TOPICAL JELLY (Urojet) MM ONE (07:10)
--- NOTE | 2019-07-01 07:27 | NUR ---
Called [facility] regarding transport, they stated they do not have transport on the weekend and that the family needed to be called. I called [facility] who stated that she would get ready and come get patient to transport back to [facility].
== END 2019-07-01 08:17 ==
LOC: ER 06:44
DX: T83.098A Other mechanical complication of other urinary catheter, initial encounter (principal); F03.90 Unspecified dementia, unspecified severity, without behavioral disturbance, psychotic disturbance, mood disturbance, and anxiety; Z98.890 Other specified postprocedural states; Z79.899 Other long term (current) drug therapy; Y69 Unspecified misadventure during surgical and medical care; Y92.89 Other specified places as the place of occurrence of the external cause
CPT/HCPCS: 51702; 99284

== ENCOUNTER 2019-07-07 18:56 | Emergency (ER) | payer MEDICARE, BC ==
[~2019-07-07] VITALS: Ht 188 cm; Wt 85.8 kg
--- NOTE | 2019-07-07 19:18 | NUR ---
PATIENT PULLED OUT #18 SLOVENIAN COUDEE OUT WITH UROMETER; PER DR SAUCEDA VERBAL ORDER TO BE REPLACED NO ORDERS FOR UA
[2019-07-07 20:06] VITALS: BP 120/76
== END 2019-07-07 20:08 | disposition home or self-care (01) ==
LOC: ER 18:57
DX: Z46.6 Encounter for fitting and adjustment of urinary device (principal); F03.90 Unspecified dementia, unspecified severity, without behavioral disturbance, psychotic disturbance, mood disturbance, and anxiety; Z98.890 Other specified postprocedural states; Z79.899 Other long term (current) drug therapy
CPT/HCPCS: 99284

== ENCOUNTER 2019-07-09 00:12 | Emergency (ER) | payer MEDICARE, BC ==
[~2019-07-09] VITALS: Ht 185.4 cm; Wt 95.0 kg
[2019-07-09 02:01] LABS: CLARITY,URINE CLOUDY (Clear); COLOR,URINE AMBER (Yellow); GLUCOSE, URINE NEGATIVE (Neg); KETONES,URINE NEGATIVE (Neg); LEUKOCYTE ESTERASE ,URINE LARGE (Neg); NITRITES, URINE NEGATIVE (Neg); OCCULT BLOOD,URINE LARGE (Neg); PROTEIN,URINE TRACE mg/dl (Neg); UA COLLECTION TYPE FOLEY CATH; UROBILINOGEN,URINE 0.2 E.U/dL (0.2-1.0)
[2019-07-09] MEDS ORDERED: CIPR-230 PO (02:13)
[2019-07-09] MEDS ORDERED: DIPH25CA83 PO (02:13)
[2019-07-09 02:29] LABS: BACTERIA,URINE 2+ /HPF (Neg); RBC,URINE TNTC /HPF (0-2); WBC,URINE 30-50 /HPF (0-4)
[2019-07-09 02:30] LABS: MUCUS STRANDS NONE SEEN /LPF (Neg); SQUAMOUS EPITHELIAL CELL,UR NONE SEEN /LPF (FEW)
[2019-07-09 02:31] VITALS: BP 134/98
== END 2019-07-09 02:32 | disposition home or self-care (01) ==
LOC: ER 00:14
DX: T83.511A Infection and inflammatory reaction due to indwelling urethral catheter, initial encounter (principal); N39.0 Urinary tract infection, site not specified; F03.90 Unspecified dementia, unspecified severity, without behavioral disturbance, psychotic disturbance, mood disturbance, and anxiety; Z98.890 Other specified postprocedural states; Z79.2 Long term (current) use of antibiotics; Z79.899 Other long term (current) drug therapy; Y92.89 Other specified places as the place of occurrence of the external cause
CPT/HCPCS: 81001; 87077; 87088; 87186; 99284

== ENCOUNTER 2019-07-31 14:28 | Emergency (ER) | payer MEDICARE, BC ==
[~2019-07-31] VITALS: Ht 182.9 cm; Wt 140.0 kg
[~2019-07-31 14:28] MED LIST changes: +DIPH25CA83 PO
[2019-07-31 14:34] VITALS: BP 133/91
== END 2019-07-31 15:45 | disposition home or self-care (01) ==
LOC: ER 14:29
DX: S00.31XA Abrasion of nose, initial encounter (principal); R41.0 Disorientation, unspecified; F03.90 Unspecified dementia, unspecified severity, without behavioral disturbance, psychotic disturbance, mood disturbance, and anxiety; Z98.890 Other specified postprocedural states; Z79.899 Other long term (current) drug therapy; W18.30XA Fall on same level, unspecified, initial encounter; Y93.89 Activity, other specified; Y92.89 Other specified places as the place of occurrence of the external cause; Y99.9 Unspecified external cause status
CPT/HCPCS: 70450; 99284

== ENCOUNTER 2019-08-02 07:00 | Emergency (ER) | payer MEDICARE, BC ==
[~2019-08-02] VITALS: Ht 177.8 cm; Wt 81.8 kg
[2019-08-02] MEDS ORDERED: diphenhydrAMINE 25mg capsule PO ONE (08:55)
[2019-08-02 12:09] VITALS: BP 155/70
[2019-08-02 13:59] LABS: CLARITY,URINE CLOUDY (Clear); GLUCOSE, URINE NEGATIVE (Neg); KETONES,URINE NEGATIVE (Neg); LEUKOCYTE ESTERASE ,URINE LARGE (Neg); NITRITES, URINE POSITIVE (Neg); OCCULT BLOOD,URINE LARGE (Neg); PROTEIN,URINE 100 mg/dl (Neg); UROBILINOGEN,URINE 0.2 E.U/dL (0.2-1.0)
[2019-08-02 14:00] LABS: COLOR,URINE Pink (Yellow)
[2019-08-02 14:06] LABS: UA COLLECTION TYPE FOLEY CATH
[2019-08-02 14:07] LABS: BACTERIA,URINE 4+ /HPF (Neg); RBC,URINE TNTC /HPF (0-2)
[2019-08-02 14:09] LABS: SQUAMOUS EPITHELIAL CELL,UR FEW /LPF (FEW); WBC,URINE 50-100 /HPF (0-4)
[2019-08-02 14:13] LABS: CAL OXALATE CRYSTALS FEW /HPF (NEGATIVE)
[2019-08-02 14:14] LABS: CALCIUM PHOSPHATE CRYSTALS,UR 4+ /HPF (NEGATIVE)
--- NOTE | 2019-08-08 09:19 | NUR ---
CALLED AND GOT A HOLD OF HIS . SHE STATED THAT HE LIVES AT [facility] AND THEY FILL HIS RX'S... I WILL CALL [facility]
--- NOTE | 2019-08-08 09:26 | NUR ---
CALLED [facility] THEY TOLD ME TO CALL [facility] AND CALL THE RX IN THERE.
--- NOTE | 2019-08-08 09:30 | NUR ---
TALKED TO [facility]. CALLED IN BACTRIM DS 2 TABS BIDX 10 DAYS. PT. HAS MRSA IN URINE
== END 2019-08-02 12:13 | disposition home or self-care (01) ==
LOC: ER 07:01
DX: T83.098A Other mechanical complication of other urinary catheter, initial encounter (principal); L29.9 Pruritus, unspecified; F03.90 Unspecified dementia, unspecified severity, without behavioral disturbance, psychotic disturbance, mood disturbance, and anxiety; Z87.01 Personal history of pneumonia (recurrent); Z98.890 Other specified postprocedural states; Z79.899 Other long term (current) drug therapy; Y92.89 Other specified places as the place of occurrence of the external cause
CPT/HCPCS: 51700; 81001; 87077; 87088; 87186; 99284; Q0163

== ENCOUNTER 2019-08-14 09:04 | Emergency (ER) | payer MEDICARE, BC ==
[~2019-08-14] VITALS: Ht 185.4 cm; Wt 80.0 kg
--- NOTE | 2019-08-14 09:40 | NUR ---
to ct, tech declined offer for accompaniment. pt stable, but has AD.
[2019-08-14 09:52] LABS: BASOPHILS % (AUTO) 0.4 % (0-1); EOSINOPHILS % (AUTO) 0.2 % (0-6); HEMATOCRIT 39.5 % (42.0-52.0); HEMOGLOBIN 13.1 g/dl (14.0-17.9); LYMPHOCYTES # (AUTO) 1.1 X10'3 (1.1-4.8); LYMPHOCYTES % (AUTO) 12.7 % (21-51); MEAN CORPUSCULAR HEMOGLOBIN 27.1 PG (27.0-31.0); MEAN PLATELET VOLUME 7.2 FL (7.4-10.4); MONOCYTES # (AUTO) 0.7 X10'3 (0-0.9); MONOCYTES % (AUTO) 8.2 % (2-12); NEUTROPHILS # (AUTO) 6.5 X10'3 (1.8-7.7); NEUTROPHILS % (AUTO) 78.5 % (42-75); PLATELET COUNT 236 X10'3 (140-440); RED BLOOD COUNT 4.82 X10'6 (4.70-6.10); RED CELL DISTRIBUTION WIDTH 15.6 % (11.5-14.5); WHITE BLOOD COUNT 8.3 X10'3 (4.5-11.0)
[2019-08-14 10:03] LABS: ALANINE AMINOTRANSFERASE 20 U/L (12-78); ALBUMIN 3.4 G/DL (3.4-5.0); ALBUMIN/GLOBULIN RATIO 1.1 (1.1-1.5); ALKALINE PHOSPHATASE 108 IU/L (46-116); ANION GAP 11 (8-16); ASPARTATE AMINO TRANSFERASE 14 U/L (10-37); BILIRUBIN,TOTAL 0.3 MG/DL (0.1-1.0); BLOOD UREA NITROGEN 22 MG/DL (7-18); BUN/CREATININE RATIO 23.2 (5.4-32.0); CALCIUM 8.4 MG/DL (8.5-10.1); CHLORIDE 105 MMOL/L (99-107); CREATININE 0.95 MG/DL (0.60-1.10); GLUCOSE 116 MG/DL (70-104); SODIUM 141 MMOL/L (135-145); TOTAL CARBON DIOXIDE 24.6 MMOL/L (24-32); TOTAL PROTEIN 6.6 G/DL (6.4-8.2); eGFR 79 ML/MIN
[2019-08-14 10:12] LABS: TROPONIN I < 0.04 NG/ML (0.0-0.05)
[2019-08-14] MEDS ORDERED: LIDOcaine Viscous 15ml cup TP ONE (10:20)
[2019-08-14] MEDS ORDERED: diphenhydrAMINE 50 mg/ml inj IV ONE ×2 (10:20→11:35)
[2019-08-14 10:30] LABS: CLARITY,URINE SLIGHTLY CLOUDY (Clear); COLOR,URINE YELLOW (Yellow); GLUCOSE, URINE NEGATIVE (Neg); KETONES,URINE NEGATIVE (Neg); LEUKOCYTE ESTERASE ,URINE MODERATE (Neg); NITRITES, URINE NEGATIVE (Neg); OCCULT BLOOD,URINE LARGE (Neg); PROTEIN,URINE TRACE mg/dl (Neg); UROBILINOGEN,URINE 0.2 E.U/dL (0.2-1.0)
[2019-08-14 10:33] LABS: UA COLLECTION TYPE FOLEY CATH
[2019-08-14 10:37] LABS: SQUAMOUS EPITHELIAL CELL,UR NONE SEEN /LPF (FEW)
[2019-08-14 10:40] LABS: RBC,URINE TNTC /HPF (0-2); TRANSITIONAL EPI CELLS,URINE FEW /HPF; WBC,URINE 20-30 /HPF (0-4)
[2019-08-14] MEDS ORDERED: normal saline 1000ml 1,000 ML IV ONE (10:40)
[2019-08-14 10:41] LABS: BACTERIA,URINE 1+ /HPF (Neg)
[2019-08-14 10:46] LABS: URINE AMPHETAMINE SCREEN NEGATIVE (Neg); URINE BARBITUATE SCREEN NEGATIVE (Neg); URINE BENZODIAZEPINES SCREEN NEGATIVE (Neg); URINE CANNABINOID SCREEN NEGATIVE (Neg); URINE COCAINE SCREEN NEGATIVE (Neg); URINE METHADONE SCREEN NEGATIVE (Neg); URINE OPIATE SCREEN NEGATIVE (Neg); URINE PHENCYCLIDINE SCREEN NEGATIVE (Neg)
[2019-08-14 10:53] VITALS: BP 118/87
[2019-08-14] MEDS ORDERED: HYDR28CR14 TOP (11:45)
== END 2019-08-14 13:06 | disposition home or self-care (01) ==
LOC: ER 09:05
DX: R56.9 Unspecified convulsions (principal); F03.90 Unspecified dementia, unspecified severity, without behavioral disturbance, psychotic disturbance, mood disturbance, and anxiety; Z98.890 Other specified postprocedural states; Z79.899 Other long term (current) drug therapy
CPT/HCPCS: 36415; 70450; 71045; 80053; 80305; 81001; 84443; 84484; 85025; 96374; 96376; 99284; J1200; J7030

== ENCOUNTER 2019-08-20 01:48 | Emergency (ER) | payer MEDICARE, BC ==
[~2019-08-20] VITALS: Ht 182.9 cm; Wt 85.8 kg
[~2019-08-20 01:48] MED LIST changes: +HYDR28CR14 TOP
--- NOTE | 2019-08-20 03:13 | NUR ---
PT CRANE CATHETER BALLOON DEFLATED AND REMOVED. WHEN CATHETER REMOVED PT URINATED A LARGE AMOUNT. CRANE REPLACED (16 TAMAZIGHT) W/ LEG BAG. CLEAR DAJA URINE DRAINING, APPROX 200 ML.
[2019-08-20 03:17] VITALS: BP 120/84
== END 2019-08-20 03:46 | disposition home or self-care (01) ==
LOC: ER 01:49
DX: R33.9 Retention of urine, unspecified (principal); F03.90 Unspecified dementia, unspecified severity, without behavioral disturbance, psychotic disturbance, mood disturbance, and anxiety; Z98.890 Other specified postprocedural states; Z79.899 Other long term (current) drug therapy
CPT/HCPCS: 51702; 99284

== ENCOUNTER 2019-09-16 09:14 | Emergency (ER) | payer MEDICARE, BC ==
[~2019-09-16] VITALS: Ht 182.9 cm; Wt 85.8 kg
[2019-09-16] MEDS ORDERED: normal saline 1000ML IV soln IV ONE (09:20)
[2019-09-16 09:56] LABS: BASOPHILS # (AUTO) 0.1 X10'3 (0-0.2); BASOPHILS % (AUTO) 0.5 % (0-1); EOSINOPHILS % (AUTO) 0 % (0-6); HEMATOCRIT 38.4 % (42.0-52.0); HEMOGLOBIN 12.6 g/dl (14.0-17.9); LYMPHOCYTES # (AUTO) 0.8 X10'3 (1.1-4.8); MEAN CORPUSCULAR HEMOGLOBIN 27.6 PG (27.0-31.0); MEAN CORPUSCULAR HGB CONC 32.9 g/dL (33.0-36.5); MEAN CORPUSCULAR VOLUME 83.9 FL (78-98); MEAN PLATELET VOLUME 7.7 FL (7.4-10.4); MONOCYTES # (AUTO) 0.9 X10'3 (0-0.9); MONOCYTES % (AUTO) 7.5 % (2-12); NEUTROPHILS # (AUTO) 10.1 X10'3 (1.8-7.7); PLATELET COUNT 173 X10'3 (140-440); RED BLOOD COUNT 4.57 X10'6 (4.70-6.10); RED CELL DISTRIBUTION WIDTH 15.8 % (11.5-14.5); WHITE BLOOD COUNT 11.9 X10'3 (4.5-11.0)
[2019-09-16 09:59] LABS: CLARITY,URINE CLOUDY (Clear); GLUCOSE, URINE NEGATIVE (Neg); KETONES,URINE NEGATIVE (Neg); LEUKOCYTE ESTERASE ,URINE MODERATE (Neg); NITRITES, URINE POSITIVE (Neg); OCCULT BLOOD,URINE LARGE (Neg); PROTEIN,URINE 100 mg/dl (Neg); UROBILINOGEN,URINE 0.2 E.U/dL (0.2-1.0)
[2019-09-16 10:03] LABS: UA COLLECTION TYPE FOLEY CATH
[2019-09-16 10:04] LABS: COLOR,URINE DARK YELLOW (Yellow)
[2019-09-16 10:05] LABS: WBC,URINE TNTC /HPF (0-4)
[2019-09-16 10:06] LABS: BACTERIA,URINE 2+ /HPF (Neg); MUCUS STRANDS MANY /LPF (Neg); RBC,URINE TNTC /HPF (0-2); SQUAMOUS EPITHELIAL CELL,UR NONE SEEN /LPF (FEW); WBC CLUMPS,URINE MANY /HPF (NEGATIVE)
[2019-09-16 10:10] LABS: ALANINE AMINOTRANSFERASE 16 U/L (12-78); ALBUMIN 3.3 G/DL (3.4-5.0); ALBUMIN/GLOBULIN RATIO 1.1 (1.1-1.5); ALKALINE PHOSPHATASE 93 IU/L (46-116); ANION GAP 8 (8-16); ASPARTATE AMINO TRANSFERASE 28 U/L (10-37); BILIRUBIN,TOTAL 0.5 MG/DL (0.1-1.0); BLOOD UREA NITROGEN 28 MG/DL (7-18); BUN/CREATININE RATIO 26.9 (5.4-32.0); CALCIUM 8.4 MG/DL (8.5-10.1); CHLORIDE 107 MMOL/L (99-107); CREATININE 1.04 MG/DL (0.60-1.10); GLUCOSE 112 MG/DL (70-104); POTASSIUM 3.1 MMOL/L (3.5-5.1); SODIUM 143 MMOL/L (135-145); TOTAL CARBON DIOXIDE 27.8 MMOL/L (24-32); TOTAL PROTEIN 6.4 G/DL (6.4-8.2); eGFR 71 ML/MIN
[2019-09-16] MEDS ORDERED: DOXY100C76 PO (10:43)
[2019-09-16] MEDS ORDERED: CefTRIAXone 1000mg IM Kit (w/lidocaine diluent) IM ONE (12:45)
[2019-09-16 14:12] VITALS: BP 132/88
== END 2019-09-16 14:15 | disposition home or self-care (01) ==
LOC: ER 09:15
DX: T83.511A Infection and inflammatory reaction due to indwelling urethral catheter, initial encounter (principal); N39.0 Urinary tract infection, site not specified; G30.0 Alzheimer's disease with early onset; F02.80 Dementia in other diseases classified elsewhere, unspecified severity, without behavioral disturbance, psychotic disturbance, mood disturbance, and anxiety; R41.82 Altered mental status, unspecified; Z87.01 Personal history of pneumonia (recurrent); Z98.890 Other specified postprocedural states; Z79.899 Other long term (current) drug therapy; Y92.89 Other specified places as the place of occurrence of the external cause
CPT/HCPCS: 36415; 70450; 71045; 80053; 81001; 83605; 83735; 84145; 85025; 87040; 87077; 87088; 87186; 93005; 96360; 96361; 96372; 99285; J0696; J7030

== ENCOUNTER 2019-10-31 07:57 | Emergency (ER) | payer MEDICARE, BC ==
[~2019-10-31] VITALS: Ht 193 cm; Wt 88.6 kg
[2019-10-31 10:00] VITALS: BP 123/72
== END 2019-10-31 11:33 | disposition home or self-care (01) ==
LOC: ER 07:57
DX: S01.01XA Laceration without foreign body of scalp, initial encounter (principal); F03.90 Unspecified dementia, unspecified severity, without behavioral disturbance, psychotic disturbance, mood disturbance, and anxiety; Z98.890 Other specified postprocedural states; Z79.899 Other long term (current) drug therapy; W18.39XA Other fall on same level, initial encounter; Y93.89 Activity, other specified; Y92.89 Other specified places as the place of occurrence of the external cause; Y99.8 Other external cause status
CPT/HCPCS: 12001; 70450; 99284

== ENCOUNTER 2019-12-03 18:29 | Emergency (ER) | payer MEDICARE, BC ==
[~2019-12-03] VITALS: Ht 182.9 cm; Wt 77.2 kg
[2019-12-03] MEDS ORDERED: LIDOcaine 1% W/epiNEPHrine 1:200,000 10ml vial IJ ONE (18:55)
--- NOTE | 2019-12-03 19:00 | NUR ---
cicollar in place patient out to ct scan
--- NOTE | 2019-12-03 20:41 | NUR ---
dr. witt at bedside performing sutures
[2019-12-03 21:48] VITALS: BP 129/75
== END 2019-12-03 21:50 | disposition home or self-care (01) ==
LOC: ER 18:29
DX: S01.81XA Laceration without foreign body of other part of head, initial encounter (principal); Z87.01 Personal history of pneumonia (recurrent); Z87.440 Personal history of urinary (tract) infections; Z98.890 Other specified postprocedural states; Z79.2 Long term (current) use of antibiotics; Z79.899 Other long term (current) drug therapy; W19.XXXA Unspecified fall, initial encounter; Y93.89 Activity, other specified; Y92.89 Other specified places as the place of occurrence of the external cause; Y99.8 Other external cause status
CPT/HCPCS: 12001; 12011; 70450; 72125; 99285

== ENCOUNTER 2020-01-14 10:46 | Emergency (ER) | payer MEDICARE, BC ==
[~2020-01-14] VITALS: Ht 177.8 cm; Wt 77.0 kg
[2020-01-14] MEDS ORDERED: TETanus/Pertussis (Acell)/Diphther VAC/PF (Tdap-Adult) 0.5ml syringe IMVAC ONE (10:55)
[2020-01-14] MEDS ORDERED: LIDOcaine 1% W/epiNEPHrine 1:200,000 10ml vial IJ ONE ×2 (10:55→12:35)
[2020-01-14 11:41] LABS: BASOPHILS % (AUTO) 0.3 % (0-1); EOSINOPHILS % (AUTO) 0.3 % (0-6); HEMATOCRIT 39.7 % (42.0-52.0); HEMOGLOBIN 13.1 g/dl (14.0-17.9); LYMPHOCYTES # (AUTO) 0.6 X10'3 (1.1-4.8); LYMPHOCYTES % (AUTO) 6.8 % (21-51); MEAN CORPUSCULAR HEMOGLOBIN 27.9 PG (27.0-31.0); MEAN CORPUSCULAR VOLUME 84.5 FL (78-98); MEAN PLATELET VOLUME 6.8 FL (7.4-10.4); MONOCYTES # (AUTO) 0.6 X10'3 (0-0.9); MONOCYTES % (AUTO) 6.3 % (2-12); NEUTROPHILS # (AUTO) 7.8 X10'3 (1.8-7.7); NEUTROPHILS % (AUTO) 86.3 % (42-75); PLATELET COUNT 284 X10'3 (140-440); RED CELL DISTRIBUTION WIDTH 13.9 % (11.5-14.5); WHITE BLOOD COUNT 9.1 X10'3 (4.5-11.0)
[2020-01-14 11:50] LABS: COLOR,URINE YELLOW (Yellow); GLUCOSE, URINE NEGATIVE (Neg); KETONES,URINE NEGATIVE (Neg); LEUKOCYTE ESTERASE ,URINE LARGE (Neg); NITRITES, URINE POSITIVE (Neg); OCCULT BLOOD,URINE TRACE-INTACT (Neg); PROTEIN,URINE NEGATIVE (Neg); UROBILINOGEN,URINE 0.2 E.U/dL (0.2-1.0)
[2020-01-14 12:05] LABS: CLARITY,URINE SLIGHTLY CLOUDY (Clear)
[2020-01-14 12:12] LABS: ALANINE AMINOTRANSFERASE 21 U/L (12-78); ALBUMIN 3.3 G/DL (3.4-5.0); ALKALINE PHOSPHATASE 111 IU/L (46-116); ASPARTATE AMINO TRANSFERASE 16 U/L (10-37); BILIRUBIN,TOTAL 0.3 MG/DL (0.1-1.0); BLOOD UREA NITROGEN 20 MG/DL (7-18); BUN/CREATININE RATIO 24.4 (5.4-32.0); CALCIUM 8.5 MG/DL (8.5-10.1); CHLORIDE 108 MMOL/L (99-107); CREATININE 0.82 MG/DL (0.60-1.10); GLUCOSE 99 MG/DL (70-104); POTASSIUM 3.2 MMOL/L (3.5-5.1); TOTAL PROTEIN 6.5 G/DL (6.4-8.2); eGFR > 90 ML/MIN
[2020-01-14 12:14] LABS: UA COLLECTION TYPE FOLEY CATH
[2020-01-14 12:17] LABS: BACTERIA,URINE 4+ /HPF (Neg); RBC,URINE 0-2 /HPF (0-2); SQUAMOUS EPITHELIAL CELL,UR FEW /LPF (FEW); WBC,URINE TNTC /HPF (0-4)
[2020-01-14 13:01] LABS: ANION GAP 7 (8-16); SODIUM 143 MMOL/L (135-145)
[2020-01-14] MEDS ORDERED: CEPH250T PO (13:19)
[2020-01-14 14:11] VITALS: BP 113/89
== END 2020-01-14 15:27 | disposition home or self-care (01) ==
LOC: ER 10:46
DX: S01.81XA Laceration without foreign body of other part of head, initial encounter (principal); N39.0 Urinary tract infection, site not specified; F03.90 Unspecified dementia, unspecified severity, without behavioral disturbance, psychotic disturbance, mood disturbance, and anxiety; Z98.890 Other specified postprocedural states; Z79.899 Other long term (current) drug therapy; W18.30XA Fall on same level, unspecified, initial encounter; Y93.89 Activity, other specified; Y92.89 Other specified places as the place of occurrence of the external cause; Y99.8 Other external cause status
CPT/HCPCS: 12015; 36415; 70450; 71045; 72125; 80053; 81001; 82948; 84484; 85025; 85610; 87077; 87088; 87186; 90715; 93005; 99285

== ENCOUNTER 2020-01-18 18:08 | Emergency (ER) | payer MEDICARE, BC ==
[~2020-01-18] VITALS: Ht 188 cm; Wt 95.5 kg
[~2020-01-18 18:08] MED LIST changes: +CEPH250T PO
[2020-01-18 18:12] VITALS: BP 120/79
[2020-01-18] MEDS ORDERED: normal saline 1000ML IV soln IV ONE (18:25)
[2020-01-18] MEDS ORDERED: VANCOmycin 1250MG/NS 250ml Bag 250 ML IV ONE (18:35)
[2020-01-18 18:54] LABS: BASOPHILS # (AUTO) 0.1 X10'3 (0-0.2); BASOPHILS % (AUTO) 0.6 % (0-1); EOSINOPHILS # (AUTO) 0.1 X10'3 (0-0.9); HEMATOCRIT 36.3 % (42.0-52.0); LYMPHOCYTES # (AUTO) 1.1 X10'3 (1.1-4.8); LYMPHOCYTES % (AUTO) 11.1 % (21-51); MEAN CORPUSCULAR HEMOGLOBIN 28.1 PG (27.0-31.0); MEAN CORPUSCULAR HGB CONC 33.1 g/dL (33.0-36.5); MEAN PLATELET VOLUME 7.3 FL (7.4-10.4); MONOCYTES # (AUTO) 0.7 X10'3 (0-0.9); MONOCYTES % (AUTO) 7.7 % (2-12); NEUTROPHILS # (AUTO) 7.6 X10'3 (1.8-7.7); NEUTROPHILS % (AUTO) 79.6 % (42-75); PLATELET COUNT 276 X10'3 (140-440); RED BLOOD COUNT 4.27 X10'6 (4.70-6.10); RED CELL DISTRIBUTION WIDTH 14.1 % (11.5-14.5); WHITE BLOOD COUNT 9.5 X10'3 (4.5-11.0)
[2020-01-18 19:01] LABS: PARTIAL THROMBOPLASTIN TIME 32 SECONDS (22-32)
[2020-01-18 19:02] LABS: GLUCOSE 130 MG/DL (70-104)
[2020-01-18 19:03] LABS: ALANINE AMINOTRANSFERASE 19 U/L (12-78); ALBUMIN/GLOBULIN RATIO 0.9 (1.1-1.5); ALKALINE PHOSPHATASE 100 IU/L (46-116); ANION GAP 6 (8-16); ASPARTATE AMINO TRANSFERASE 9 U/L (10-37); BILIRUBIN,TOTAL 0.2 MG/DL (0.1-1.0); BLOOD UREA NITROGEN 33 MG/DL (7-18); BUN/CREATININE RATIO 31.7 (5.4-32.0); CALCIUM 9.1 MG/DL (8.5-10.1); CHLORIDE 109 MMOL/L (99-107); CREATININE 1.04 MG/DL (0.60-1.10); POTASSIUM 3.2 MMOL/L (3.5-5.1); SODIUM 145 MMOL/L (135-145); TOTAL CARBON DIOXIDE 30.5 MMOL/L (24-32); TOTAL PROTEIN 6.5 G/DL (6.4-8.2); eGFR 71 ML/MIN
[2020-01-18] MEDS ORDERED: DOXYCYCLINE 100MG CAPSULE PO STA (19:18)
[2020-01-18] MEDS ORDERED: sulfamethoxazole/trimethoprim DS (800/160mg) tablet PO ONE (19:20)
[2020-01-18] MEDS ORDERED: ondansetron/PF 4mg/2ml inj IV ONE (19:20)
[2020-01-18] MEDS ORDERED: SULF1TAB49 PO (19:22)
[2020-01-18] MEDS ORDERED: DOXY100C43 PO (19:22)
[2020-01-18] MEDS ORDERED: potassium Cl 20 mEq SR tablet PO STA (19:22)
[2020-01-18] MEDS ORDERED: ONDA8TAB6 PO (19:22)
--- NOTE | 2020-01-19 15:08 | NUR ---
CALL FROM [facility]ANNA[facility] JACKSON STATING PT WAS INSTRUCTED BY ED TO STOP KEFLEX ONCE HE STARTS BACTRIM AND DOXY, BUT I WAS NOT WRITTEN ON THE DC PAPERWORK AND THEY REQUIRE SOMTHING WRITTEN. SPOKE WITH DR FREED, INSTRUCTIONS WRITTN ON A BLANK RX PAD AND FAXED TO [phone]. COPY PLACED IN CHART
== END 2020-01-18 20:46 | disposition home or self-care (01) ==
LOC: ER 18:09
DX: S01.112D Laceration without foreign body of left eyelid and periocular area, subsequent encounter (principal); L03.211 Cellulitis of face; Z87.01 Personal history of pneumonia (recurrent); Z87.440 Personal history of urinary (tract) infections; Z98.890 Other specified postprocedural states; Z79.2 Long term (current) use of antibiotics; Z79.899 Other long term (current) drug therapy; W19.XXXD Unspecified fall, subsequent encounter; Y93.89 Activity, other specified; Y92.89 Other specified places as the place of occurrence of the external cause; Y99.8 Other external cause status
CPT/HCPCS: 36415; 71045; 80053; 83605; 83735; 84145; 85025; 85610; 85730; 87040; 87070; 87077; 87186; 93005; 96365; 96375; 99285; J2405; J3370; J7030

== ENCOUNTER 2020-03-02 07:03 | Emergency (ER) | payer MEDICARE, BC ==
[~2020-03-02] VITALS: Ht 190.5 cm; Wt 71.8 kg
[~2020-03-02 07:03] MED LIST changes: -CEPH250T PO; +ONDA8TAB6 PO
[2020-03-02] MEDS ORDERED: levetiracetam inj 1,000 MG in normal saline 100ml IV soln 90 ML IV ONE (07:15)
[2020-03-02 07:31] LABS: BASOPHILS % (AUTO) 0.5 % (0-1); EOSINOPHILS % (AUTO) 0.1 % (0-6); HEMATOCRIT 38.5 % (42.0-52.0); HEMOGLOBIN 12.5 g/dl (14.0-17.9); MEAN CORPUSCULAR HGB CONC 32.5 g/dL (33.0-36.5); MEAN CORPUSCULAR VOLUME 86.2 FL (78-98); MEAN PLATELET VOLUME 7.3 FL (7.4-10.4); MONOCYTES # (AUTO) 0.5 X10'3 (0-0.9); MONOCYTES % (AUTO) 7.3 % (2-12); NEUTROPHILS # (AUTO) 5.3 X10'3 (1.8-7.7); NEUTROPHILS % (AUTO) 78.1 % (42-75); PLATELET COUNT 233 X10'3 (140-440); RED BLOOD COUNT 4.47 X10'6 (4.70-6.10); RED CELL DISTRIBUTION WIDTH 14.9 % (11.5-14.5); WHITE BLOOD COUNT 6.8 X10'3 (4.5-11.0)
[2020-03-02] MEDS ORDERED: levetiracetam-NS 1000mg/100ml 100 ML IV ONE (07:45)
[2020-03-02 07:50] LABS: ALANINE AMINOTRANSFERASE 15 U/L (12-78); ALBUMIN 3.3 G/DL (3.4-5.0); ALKALINE PHOSPHATASE 106 IU/L (46-116); ANION GAP 10 (8-16); ASPARTATE AMINO TRANSFERASE 13 U/L (10-37); BILIRUBIN,TOTAL 0.3 MG/DL (0.1-1.0); BLOOD UREA NITROGEN 26 MG/DL (7-18); BUN/CREATININE RATIO 31.7 (5.4-32.0); CALCIUM 8.4 MG/DL (8.5-10.1); CHLORIDE 107 MMOL/L (99-107); CREATININE 0.82 MG/DL (0.60-1.10); GLUCOSE 119 MG/DL (70-104); MAGNESIUM 2.1 MG/DL (1.5-2.4); POTASSIUM 3.5 MMOL/L (3.5-5.1); SODIUM 141 MMOL/L (135-145); TOTAL CARBON DIOXIDE 23.8 MMOL/L (24-32); TOTAL PROTEIN 6.6 G/DL (6.4-8.2); eGFR > 90 ML/MIN
--- NOTE | 2020-03-02 07:59 | NUR ---
PT WENT TO CT AFTER RETURN HE HAD BM AND WAS CLEANED UP
[2020-03-02] MEDS ORDERED: normal saline 1000ml 1,000 ML IV ONE (08:00)
[2020-03-02] MEDS ORDERED: KEP500T PO (08:33)
[2020-03-02 09:09] VITALS: BP 113/64
== END 2020-03-02 09:42 | disposition home or self-care (01) ==
LOC: ER 07:03
DX: N39.0 Urinary tract infection, site not specified (principal); F03.90 Unspecified dementia, unspecified severity, without behavioral disturbance, psychotic disturbance, mood disturbance, and anxiety; Z98.890 Other specified postprocedural states; Z79.899 Other long term (current) drug therapy
CPT/HCPCS: 36415; 70450; 80053; 83735; 85025; 96360; 99284; J1953; J7030; 96365

== ENCOUNTER 2020-09-23 19:02 | Emergency (ER) | payer MEDICARE, BC ==
[~2020-09-23] VITALS: Ht 185.4 cm; Wt 65.0 kg
[~2020-09-23 19:02] MED LIST changes: +KEP500T PO
--- NOTE | 2020-09-23 19:45 | NUR ---
Pt off with CT.
[2020-09-23 20:25] LABS: EOSINOPHILS % (AUTO) 0.2 % (0-6); LYMPHOCYTES # (AUTO) 0.8 X10'3 (1.1-4.8); MEAN PLATELET VOLUME 7.5 FL (7.4-10.4); MONOCYTES # (AUTO) 0.5 X10'3 (0-0.9); NEUTROPHILS # (AUTO) 6.7 X10'3 (1.8-7.7); WHITE BLOOD COUNT 8.1 X10'3 (4.5-11.0)
[2020-09-23 20:27] LABS: BASOPHILS % (AUTO) 0.4 % (0-1); HEMATOCRIT 38.2 % (42.0-52.0); HEMOGLOBIN 12.9 g/dl (14.0-17.9); LYMPHOCYTES % (AUTO) 10.2 % (21-51); MEAN CORPUSCULAR HEMOGLOBIN 28.8 PG (27.0-31.0); MEAN CORPUSCULAR HGB CONC 33.8 g/dL (33.0-36.5); MEAN CORPUSCULAR VOLUME 85.1 FL (78-98); MONOCYTES % (AUTO) 6.4 % (2-12); NEUTROPHILS % (AUTO) 82.8 % (42-75); PLATELET COUNT 208 X10'3 (140-440); RED BLOOD COUNT 4.49 X10'6 (4.70-6.10); RED CELL DISTRIBUTION WIDTH 14.8 % (11.5-14.5)
[2020-09-23 20:38] LABS: ALANINE AMINOTRANSFERASE 20 U/L (12-78); ALBUMIN 3.3 G/DL (3.4-5.0); ALBUMIN/GLOBULIN RATIO 1.1 (1.1-1.5); ALKALINE PHOSPHATASE 111 IU/L (46-116); ANION GAP 3 (8-16); ASPARTATE AMINO TRANSFERASE 11 U/L (10-37); BILIRUBIN,TOTAL 0.4 MG/DL (0.1-1.0); BLOOD UREA NITROGEN 27 MG/DL (7-18); BUN/CREATININE RATIO 36.5 (5.4-32.0); CALCIUM 8.7 MG/DL (8.5-10.1); CHLORIDE 106 MMOL/L (99-107); CREATININE 0.74 MG/DL (0.60-1.10); GLUCOSE 110 MG/DL (70-104); POTASSIUM 3.4 MMOL/L (3.5-5.1); SODIUM 140 MMOL/L (135-145); TOTAL CARBON DIOXIDE 31.4 MMOL/L (24-32); TOTAL PROTEIN 6.4 G/DL (6.4-8.2); eGFR > 90 ML/MIN
--- NOTE | 2020-09-23 20:39 | NUR ---
DR. JESSICA VERBALIZED TO REMOVE C-COLLAR, C-COLLAR REMOVED
[2020-09-23 20:55] LABS: CLARITY,URINE CLEAR (Clear); COLOR,URINE YELLOW (Yellow); GLUCOSE, URINE NEGATIVE (Neg); KETONES,URINE NEGATIVE (Neg); LEUKOCYTE ESTERASE ,URINE NEGATIVE (Neg); NITRITES, URINE NEGATIVE (Neg); OCCULT BLOOD,URINE NEGATIVE (Neg); PH,URINE 6.5 (4.8-8.0); PROTEIN,URINE NEGATIVE (Neg)
[2020-09-23 20:57] LABS: UA COLLECTION TYPE NON-SPECIFIED
[2020-09-23 21:32] VITALS: BP 119/77
== END 2020-09-23 21:38 | disposition home or self-care (01) ==
LOC: ER 19:03
DX: R33.9 Retention of urine, unspecified (principal); F03.90 Unspecified dementia, unspecified severity, without behavioral disturbance, psychotic disturbance, mood disturbance, and anxiety; Z87.01 Personal history of pneumonia (recurrent); Z87.440 Personal history of urinary (tract) infections; Z98.890 Other specified postprocedural states; Z79.2 Long term (current) use of antibiotics; Z79.899 Other long term (current) drug therapy; W19.XXXA Unspecified fall, initial encounter; Y93.89 Activity, other specified; Y92.89 Other specified places as the place of occurrence of the external cause; Y99.8 Other external cause status
CPT/HCPCS: 51701; 70450; 71045; 72125; 80053; 81003; 85025; 93005; 99285

== ENCOUNTER 2020-10-10 14:41 | Emergency (ER) | payer MEDICARE, BC ==
[~2020-10-10] VITALS: Ht 182.9 cm; Wt 69.0 kg
[~2020-10-10 14:41] MED LIST changes: -POLY17PO36 PO; +POLY17PO59 PO
[2020-10-10] MEDS ORDERED: LIDOcaine 1% W/epiNEPHrine 1:100,000 20ml vial SQ ONE (15:30)
[2020-10-10 17:04] VITALS: BP 119/84
== END 2020-10-10 17:06 | disposition home or self-care (01) ==
LOC: ER 14:41
DX: S01.111A Laceration without foreign body of right eyelid and periocular area, initial encounter (principal); S50.311A Abrasion of right elbow, initial encounter; S09.90XA Unspecified injury of head, initial encounter; G30.9 Alzheimer's disease, unspecified; F02.80 Dementia in other diseases classified elsewhere, unspecified severity, without behavioral disturbance, psychotic disturbance, mood disturbance, and anxiety; Z87.442 Personal history of urinary calculi; Z87.440 Personal history of urinary (tract) infections; Z87.01 Personal history of pneumonia (recurrent); Z98.890 Other specified postprocedural states; Z79.899 Other long term (current) drug therapy; W01.0XXA Fall on same level from slipping, tripping and stumbling without subsequent striking against object, initial encounter; Z91.81 History of falling; Y93.89 Activity, other specified; Y92.89 Other specified places as the place of occurrence of the external cause; Y99.8 Other external cause status
CPT/HCPCS: 12013; 70450; 72125; 99285